=== PATIENT | male | born 1985 | race Caucasian/White ===

== ENCOUNTER 2021-02-28 10:10 | Emergency (ER) | payer BC, OTHER ==
[~2021-02-28] VITALS: Ht 177.8 cm; Wt 97.5 kg
[2021-02-28 10:22] VITALS: BP 154/92
== END 2021-02-28 11:17 | disposition home or self-care (01) ==
LOC: ER 10:10
DX: J06.9 Acute upper respiratory infection, unspecified (principal); Z20.822 Contact with and (suspected) exposure to COVID-19